=== PATIENT | female | born 1950 | race Two or more races ===

== ENCOUNTER 2018-02-20 01:24 | Emergency (ER) | payer OTHER ==
[~2018-02-20] VITALS: Ht 162.6 cm; Wt 65.8 kg
[2018-02-20] MEDS ORDERED: ETOMIDATE (2MG/ML) 20ML VIAL IV ONE (04:15)
[2018-02-20 05:30] VITALS: BP 148/84
== END 2018-02-20 06:56 | disposition home or self-care (01) ==
LOC: ER 01:24
DX: S53.104A Unspecified dislocation of right ulnohumeral joint, initial encounter (principal); S43.491A Other sprain of right shoulder joint, initial encounter; S40.021A Contusion of right upper arm, initial encounter; S63.501A Unspecified sprain of right wrist, initial encounter; Z88.0 Allergy status to penicillin; W19.XXXA Unspecified fall, initial encounter; Y93.89 Activity, other specified; Y99.8 Other external cause status; Y92.89 Other specified places as the place of occurrence of the external cause
CPT/HCPCS: 24600; 73030; 73060; 73070; 73080; 73110